=== PATIENT | female | born 1955 ===

== ENCOUNTER 2017-08-19 22:57 | Inpatient (IN) | payer OTHER ==
[~2017-08-19] VITALS: Ht 152.4 cm; Wt 67.2 kg
--- NOTE | ~2017-08-19 | DS ---
[place], [place] DISCHARGE SUMMARY [id number] #: [id number] ROOM: 315 DOCTOR: LEIF MAYERS MD BIRTHDATE: [birth year] DOS: 08/23/2017 CHIEF COMPLAINT: "I don't belong here, I am in so much pain, I didn't expect this." HISTORY OF PRESENT ILLNESS: This is a 62-year-old white female who was sent here to the U at [facility] from the Emergency Room at [facility]. By her report and by review of the records, the patient apparently had been talking to a friend and stated to the friend that she was at wits end and wanted to end it all. The friend contacted police who picked her up and transported her to the Emergency Room at [facility] where ultimately they sent her here on an involuntary basis, believing that she was a substantial risk of harm to self. As I interviewed her, she did report that she has battled chronic pain for over 20 years, being on methadone for at least 10 of these years. She rates her pain on a scale of 1-10 as a 10 and does not ever have a period of time where she is without pain. The pain wears her down affects her sleep and appetite. She notes chronic suicidality, but denied any true plan and stated she just wants to get help. She was admitted now to the [facility] to rule out organic factors to attempt to stabilize on medication, returning home when stable. PAST MEDICAL HISTORY: Remarkable for apnea, recent head trauma, coronary artery disease, GERD, hyperlipidemia, vitamin D deficiency and sciatica. SUMMARY OF HOSPITAL COURSE: The patient was admitted to the unit where she was started on Cymbalta 30 mg at bedtime. She tolerated this well and given her past history of multiple drug use and long-term opiate use, I thought that she would be able to tolerate a rapid increase. She went from 30 mg at night to 30 mg in the morning and 60 mg at night without any incident. Over the next several days, she noted a slight improvement in her overall pain level and felt that her mood lifted as well. She slept better and was eating better. She engaged readily in individual and hinton milieu activity and made great strides in making positive plans for the future. She convincingly denied medication side effects as well as convincingly denied suicidal thoughts, homicidal thoughts and self-injurious thoughts. MENTAL STATUS AT DISCHARGE: The patient was alert and oriented to person, place and time. Mood was euthymic. Affect appropriate. There were no symptoms of nate or hypomania. There were no overt auditory or visual hallucinations. No delusions, no paranoia. Short, intermediate and long-term memories were fully intact. FINAL DIAGNOSES: Major depression, recurrent and dysthymic disorder. DISPOSITION: The patient is to return home. All of her prescriptions have been e scribed to her pharmacy. She will have followup at [facility] in [place]. [place], [place] DISCHARGE SUMMARY NAME: IRLANDA CURIEL UNIT #: [id number] ROOM: [facility] DOCTOR: LEIF MAYERS MD BIRTHDATE: [birth year] LEIF MAYERS MD CM:DISCHARG [id number] LEIF MAYERS MD 08/23/17 1014 interface
--- NOTE | ~2017-08-19 | WRIGHTHP ---
[place], [place] PATIENT HISTORY AND PHYSICAL EXAM [id number] UNIT #: [id number] ROOM: 315 DOCTOR: LEIF MAYERS MD BIRTHDATE: [birth year] DOS: 08/20/2017 CHIEF COMPLAINT: "I don't belong here. I am in so much pain, I didn't expect this. HISTORY OF PRESENT ILLNESS: This is a 62-year-old white female who was sent here to the [facility] at [facility] from the Emergency Room at [facility]. By her report and by review of records, the patient apparently had been talking to a friend and stated to the friend that she was at her wit's end and wanted to end it all. This friend contacted the police who picked the patient up and transported her to the Emergency Room at [facility] where they ultimately sent her here on an involuntary basis. Further report of the Emergency Room, the patient was found to be very labile, volatile and verbally aggressive. Per her report, she has battled chronic pain for over 20 years and had been on methadone for at least 10. She has had 2 cardiac arrests and has had a pacemaker placed because of this; however, it was removed due to a recent infection. The patient reports multiple physical issues because of her chronic pain and states that this has worn her out and she has been very depressed. She, however, denies suicidality at this point. The patient reports no previous psychiatric history; however, she presented with an order for Paxil 30 mg a day. She is admitted now to fully ascertain the potential for lethality to attempt to stabilize on medication to engage in individual and hinton milieu activity with the ultimate plan to return home when stable. PAST MEDICAL HISTORY: Significant for apnea, a recent head trauma for which she states that she had lost her memory for approximately 2 weeks, coronary artery disease, GERD, hyperlipidemia, vitamin D deficiency and sciatica. The patient denies any illicit street drugs; however, she has been opiate dependent for 20+ years. MENTAL STATUS: She is alert and oriented. Mood is very labile. She is very terse and short and jumps from topic to topic, very fixated on leaving here and very fixated on pain. She is very intrusive as well as I attempted to round on other patients after talking to her. She interrupted on multiple occasions asking for meds or some type of intervention. She ultimately did redirect. She is somewhat histrionic as well as one point after talking to her, she slumped against the wall and attempted to lay on the floor in the hallway. For the most part, memory does seem to be intact. DIAGNOSES: Major depression, recurrent, severe; dysthymic disorder; rule out Morovis II disorder. PLAN: At the present time given the severity of her mood lability and her chronic pain issues, I am going to maintain her on the involuntary basis. I have started her on Cymbalta 30 mg at bedtime and did attempt to engage her in an understanding of what the Cymbalta can do for her. Of note, she does report that she had been on Cymbalta in the past, but could not remember the total dosing. Given her history of long-term methadone and opiate abuse, I am going to go ahead and rapidly titrate her on the Cymbalta to 30 mg in the morning and [place], [place] PATIENT HISTORY AND PHYSICAL EXAM NAME: IRLANDA CURIEL UNIT #: [id number] ROOM: [facility] DOCTOR: LEIF MAYERS MD BIRTHDATE: [birth year] 60 mg at night. I will also utilize Zostrix high potency cream in an effort to help modulate her pain. We will attempt at best to engage her in individual and hinton milieu activity as we further assess her potential for lethality. Once we have a clear picture as to whether or not she truly represents a harm to self or others, we will be able to determine the appropriate course of action. LEIF MAYERS MD CM:HISPHYS:PATIENT HISTORY AND PHYSICAL EXAMINATION 2 1020 LEIF MAYERS MD 08/20/17 1019 interface
--- NOTE | ~2017-08-19 | PR ---
[place], [place] PROGRESS NOTE NAME: [id number] UNIT #: [id number] ROOM: 315 DOCTOR: Jake WOOD,DARION BIRTHDATE: [birth year] DOS: 08/22/2017 PSYCHIATRIC PROGRESS NOTE SUBJECTIVE: The patient seen and spoke with the staff. The patient is doing well, going to the group, still med seeking, but easily redirectable. The patient was in her room. She was actually sleeping. She got up when I called her name. She said that she is feeling better, but still have some periods of depression. She was asking for her pain medication again and she was hard to redirect at times. She reports good sleep and appetite. MENTAL STATUS EXAMINATION: The patient was pleasant, cooperative, described her mood as "okay." Affect is somewhat flat. Thought process goal directed. No flight of ideas or loosening of association. She denied auditory or visual hallucination. No delusion or paranoia noted. She denied suicidal ideation, intent or plan. She also denied homicidal ideation, intent or plan. Insight and judgment fair. ASSESSMENT: Major depressive disorder, recurrent, severe without psychotic features, still depressed. PLAN: 1. Continue current medication and care. 2. Continue redirection. 3. [place] milieu. 4. Final medication management and discharge plan by the regular team. DARION WOOD MD CM:KATHIA [id number] Jake WOOD 08/22/17 1602 interface
--- NOTE | ~2017-08-19 | PR ---
[place], [place] PROGRESS NOTE NAME: [facility]EL [facility] [id number] UNIT #: [id number] ROOM: 315 DOCTOR: Jake WOOD,DARION BIRTHDATE: [birth year] DOS: 08/21/2017 PSYCHIATRIC PROGRESS NOTE SUBJECTIVE: The patient seen and spoke with the staff. Per staff, the patient is still med seeking, irritable at times, slept well. No behavioral problems or issues except for keep on asking pain medication. The patient was pleasant and cooperative, but looks distraught to me. She was in her room, seems upset and angry. When I asked her what is going on, she said that she is not getting the pain medication that she was used to. I discussed with her in detail about the risk of using pain medication. She reluctantly agreed with the plan. She acknowledges that she is feeling better than before, but still feels depressed and down. She denied any other problems or concerns. MENTAL STATUS EXAMINATION: The patient was pleasant and cooperative, described her mood as "down." Affect was flat, irritable at times. Thought process goal directed. No flight of ideas, loosening of association. She denied auditory or visual hallucination. No delusion or paranoia noted. She still had fleeting suicidal ideation, but no intent or plan. Denied any homicidal ideation, intent or plan. Insight and judgment fair. ASSESSMENT: Major depressive disorder, recurrent, severe without psychotic features, still depressed with suicidality. PLAN: 1. Continue current medication and care. We need to give some time for the medication to have its optimal effect. 2. [place]wood milieu. 3. Supportive care. 4. Encourage activity and groups. DARION WOOD MD CM:KATHIA [phone] Jake WOOD 08/21/17 2241 interface
[2017-08-19] MEDS ORDERED: NEURONTIN400 MG PO (23:01)
[2017-08-19] MEDS ORDERED: ZANAFLEX4 M1 PO (23:02)
[2017-08-19] MEDS ORDERED: MORPHINE SULFAT30 M9 PO (23:06)
[2017-08-19] MEDS ORDERED: VALIUM10 MG PO (23:08)
[2017-08-19] MEDS ORDERED: SENNA8.6 MG PO (23:11)
[2017-08-19] MEDS ORDERED: PERCOCET 7.5-31 EACH PO (23:13)
[2017-08-19] MEDS ORDERED: OMEPRAZOLE40 MG PO (23:15)
[2017-08-19] MEDS ORDERED: TOPROL XL25 MG PO (23:33)
[2017-08-19] MEDS ORDERED: PAXIL30 M2 PO (23:34)
[2017-08-19] MEDS ORDERED: NATURE'S BLEND F1 MG PO (23:35)
[2017-08-19] MEDS ORDERED: VITAMIN D31000 UNI1 PO (23:37)
[2017-08-19] MEDS ORDERED: LIPITOR20 MG PO (23:38)
[2017-08-19] MEDS ORDERED: NAMZARIC 28 MG1 EACH PO (23:38)
[2017-08-19] MEDS ORDERED: MAGOX 400400 MG PO (23:39)
[2017-08-19] MEDS ORDERED: K-TAB20 MEQ PO (23:44)
[2017-08-20 00:40] VITALS: BP 119/72
--- NOTE | 2017-08-20 00:40 | NUR ---
A 62, admitted INVOLUNTARY to , under the services of LEIF Barney MD with a diagnosis of MAJOR DEPRESSION RECURRENT, SEVERE. Chief complaint is MEMORY LOSS, IRRATIONAL FEARS, CRYING SPELLS, POSITIVE WISH. Patient arrived via stretcher from [facility]. Initial assessment completed. Vital signs taken and recorded. LEIF BARNEY MD notified of admission to the unit. Orders received. See assessment for past medical history, medications and allergies. Patient oriented to unit. [facility] visitation policy reviewed. Clothing/patient valuable form completed. PATIENT REFUSES TO REMOVE GOLD TONE WRIST WATCH TO PLACE IN LOCK BOX. PATIENT EDUCATED AND INFORMED OF IMPORTANCE OF VALUABLES BEING PLACED IN LOCK BOX, PATIENT VERBALIZED UNDERSTANDING BUT CONTINUES TO REFUSE AT THIS TIME. JEAN PIERRE MARIE
[2017-08-20 00:50] VITALS: BP 119/72
--- NOTE | 2017-08-20 00:59 | NUR ---
DR. MONROY MADE AWARE OF CONSULT FOR MEDICAL MANAGMENT. MED REC IN AND COMPLETE, MED HISTORY
--- NOTE | 2017-08-20 01:15 | NUR ---
DR. WILDE ON UNIT TO SEE PATIENT AT THIS TIME, UPDATE PROVIDED.
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
[2017-08-20 07:31] LABS: BASO % 0.4 % (0.0-1.0); EOS # 0.1 10*3/uL (0.0-0.4); EOS % 1.6 % (1.0-4.0); HEMOGLOBIN 12.3 g/dl (12.0-16.0); LYMPH # 1.6 10*3/uL (1.3-4.4); LYMPH % 32.1 % (27.0-41.0); MEAN CELL VOLUME 101.3 fl (81.0-99.0); MEAN CORPUSCULAR HGB 31.9 pg (27.0-31.0); MEAN CORPUSCULAR HGB CONC 31.5 g/dl (33.0-37.0); MEAN PLATELET VOLUME 10.3 fl (9.6-12.3); MONO # 0.4 10*3/uL (0.1-1.0); MONO % 8.3 % (3.0-9.0); NEUT # 2.9 10*3/uL (2.3-7.9); NEUT % 57.4 % (47.0-73.0); PLATELET COUNT AUTOMATED 246 10*3/uL (130-400); RED BLOOD COUNT 3.85 10*6/uL (4.10-5.10); RED CELL DISTRI WIDTH 12.5 % (0-14.5)
[2017-08-20 07:48] LABS: ALBUMIN 3.6 gm/dl (3.1-4.5); BUN 9 mg/dl (7-24); CHLORIDE 104 mmol/L (98-107); CHOLESTEROL 139 mg/dL (<200); POTASSIUM 3.3 mmol/L (3.5-5.1); SGOT/AST 12 IU/L (3-35); SGPT/ALT 9 U/L (12-78); SODIUM 144 mmol/L (136-145)
--- NOTE | 2017-08-20 07:58 | NUR ---
VO RECEIVED FROM FOR EXCEDRIN 2 TABS X1 NOW.
[2017-08-20 08:00] LABS: ALKALINE PHOSPHATASE 196 U/L (45-117); HDL CHOLESTEROL 54 mg/dl (40-60); LDL CHOLESTEROL 67 mg/dL (9-159); THYROID STIM HORMONE (HS) 0.603 uIU/ml (0.358-4.75); TOTAL PROTEIN 8.2 gm/dL (6.4-8.2); TRIGLYCERIDES 88 mg/dl (<150); VLDL CHOLESTEROL 18 mg/dL (6-40)
--- NOTE | 2017-08-20 08:25 | NUR ---
TREATMENT TEAM WAS HELD WITH THE FOLLOWING PRESENT: DR. MAYERS, RESIDENT, RNs, ATs, SW. DR. MAYERS DOES NOT WANT PT SIGINING IN UNTIL SHE HAS BEEN OBSERVED OVER THE WEEKEND. PENIDING DISCHARGE FOR NEXT WEEK.
[2017-08-20 09:34] LABS: VITAMIN D, 25-HYDROXY 41.7 ng/mL (30-100)
[2017-08-20] MEDS ORDERED: LASIX40 MG PO (09:48)
[2017-08-20 09:49] VITALS: BP 138/83
--- NOTE | 2017-08-20 09:50 | NUR ---
NOTIFIED THAT MEDICAL MEDICATIONS HAVE NOT BEEN ORDERED AT THIS TIME. STATES WILL ORDER THEM.
--- NOTE | 2017-08-20 13:40 | NUR ---
Exercise/Game Patient did attend group but needed quite a bit of encouragement to do so. Patitent did not participate during group,keeping her head on the table and refusing any encouragement made to her to participate
--- NOTE | 2017-08-20 14:53 | NUR ---
PATIENT IS ALERT AND ORIENTED. DENIES ANY SI, STATES "I SHOULD HAVE NEVER EVEN SAID THAT, I KNOW." VERBALLY CONTRACTED FOR SAFETY, PT VERBALIZES UNDERSTANDING WITH GOOD EFFECT. PATIENT STATES "MY FRIEND IN [place] DID THIS, SHE SHOULDN'T HAVE AND IT'S ALL HER FAULT." THIS FRIEND "NO" CALLED UNIT THIS AFTERNOON, PATIENT DECLINED PHONE CALL BUT GAVE THIS RN PERMISSION TO SPEAK WITH HER AND UPDATE HER ON PT STATUS. UPDATE GIVEN AND ALL QUESTIONS ANWSERED. MEDICATION EDUCATION COMPLETED ON NEW ORDERS AND DOSE INCREASED. PATIENT VERBALIZED UNDERSTANDING. MEDICATION COMPLIANT WITH GOOD EFFECT. PATIENT STATES SHE IS "ALWAYS IN PAIN." VERBALIZED THE ZOSTRIX CREAM IS HELPING WITH HER PAIN. NO HALLUCINATIONS, DELUSIONS NOTED. HAS NOT VOICED ANY IRRATIONAL FEARS. REQUIRES ENCOURAGEMENT TO ATTEND GROUP THERAPY THROUGHOUT THE DAY, WILL CONTINUE TO ENCOURAGE PT TO ATTEND AND PARTICIAPTE IN GROUP THERAPY. WILL CONTINUE TO PROVIDE EMOTIONAL SUPPORT NEEDED RELATED TO IRRATIONAL FEARS AND SUICIDAL THOUGHTS/ PASSIVE WISHES (HAS NOT VOICED ANY THIS SHIFT). WILL CONTINUE WITH Q15 MIN OBSERVATION CHECKS PER ORDERS. APPETITE FAIR THIS SHIFT, TAKING FLUIDS WELL. WILL CONTINUE TO ENCOURAGE PATIENT TO INCREASE PO INTAKE. STATES "I'M JUST NOT HUNGRY."
--- NOTE | 2017-08-20 15:41 | NUR ---
[place]/Reminiscing Patient did attend group approxematey !0 minutes after statring due to being in a meeting. Patient did participate without any prompting. Patient did well and indicated no inappropriate thoughts throughout group
--- NOTE | 2017-08-20 16:51 | NUR ---
SW COMPLETED PYSHOSOCIAL ASSESSMENT. PT WANTS TO RETURN HOME AND HAS HAD AN ASSEAAMENT THROUGH [id number] FOR IN HOME SERVICES.
[2017-08-20 19:48] VITALS: BP 102/62
--- NOTE | 2017-08-21 05:15 | NUR ---
24 HR chart check completed.
--- NOTE | 2017-08-21 05:55 | NUR ---
GREATLY IMPROVED MOOD LABILITY FROM PREVIOUS EVENING, MED EDUCATION PROVIDED ON TITRATION OF CYMBALTA. PT VOICING FEARS OF SURGICAL POSSIBILITIES TO CORRECT CHRONIC BACK PROBLEMS. DISCUSSED QUALITY OF LIFE STATING "I KNOW I CANT LAY HERE FOR THE NEXT 20 YEARS, I HAVE TO DO SOMETHING TO CHANGE THIS, I DO NOT WISH TO . BUT I HAVE HAD SO MANY TIMES IN MY LIFE THAT WERE CLOSE TO THAT I DO NOT FEAR IT, THERE IS A DIFFERENCE". PT PROVIDED 1-1, STATING I AM NOT USED TO SITTING AROUND SO MUCH I HAVE TO STAND OR LAY DOWN. PT APPOLOGISED FOR BEHAVIOR TOWARDS STAFF AND AMBULANCE CREW PREVIOUS NIGHT STATES I WAS JUST IN SO MUCH PAIN AND SO FRUSTRATED. PT ADMINISTERED MS CONTIN ORDERED SCHEDULED. PT CALM AND PURPOSEFULL INTERACTING WELL WITH PEERS. AWOKE ONCE IN THE MIDDLE OF THE NIGHT CONFUSED TO TIME OF DAY AND PLACE, PT REORIENTED TO PLACE AND TIME AND RETURNED TO SLEEP. SLEPT 8 HOURS
[2017-08-21 08:15] VITALS: BP 136/90
--- NOTE | 2017-08-21 11:30 | NUR ---
ON UNIT TO ASSESS PT.
--- NOTE | 2017-08-21 13:41 | NUR ---
PT ALERT TO PERSON,PLACE AND TIME. PT MED COMPLIANT WITHOUT DIFFICUTLY. PT ANXIOUS AT TIMES, PREOCCUPIED WITH PAIN MEDS, ASKING FOR SCHEDULED MEDS AND ASKING TO HAVE ADDITIONAL MEDS ORDERED. NO FACIAL GRIMCAING OR OVERT S/S OF PAIN NOTED. PT CALM,INTERACTING WITH STAFF AND PEERS. NO HALLUCIANTIONS OR DELUSIONS NOTED. PT DENIES ANY HOMICIDAL/SUICIDAL THOUGHTS. PT AMBULATORY THROUGHOUT UNIT, GAIT STEADY. PT CONTINENT OF BOWEL AND BLADDER. PLAN IS TO ENCOURAGE PT TO VOICE ANY SUICIDAL/HOMICIDAL THOUGHTS, MONITOR PT BEHAVIORS ON Q15 MIN SAFTEY CHECKS.
--- NOTE | 2017-08-21 15:03 | NUR ---
PT C/O HEADACHE 08/17, PRN PO MOTRIN GIVEN WITH CRACKERS AND PEANUTBUTTER AND JUICE. WILL CONTINUE TO MONITOR PAIN.
--- NOTE | 2017-08-21 15:49 | NUR ---
NO FURTHER C/O PAIN NOTED, WHEN ASKED IF MOTRIN HELPED PT STATED "YES IT'S BETTER." PT THEN BEGAN CONVERSING WITH STAFF ABOUT HAVING HER PACEMAKER REMOVED 7 MONTHS AGO, AND HER REACTOR SERVICE OPERATOR AND WAS SUPPOSED TO SET UP A MEETING WITH HER HEART DR AND HER LUNG DR "THAT WON'T SEE ME ANYMORE BECAUSE I STOPPED BREATHING TWICE IN THE MIDDLE OF THE NIGHT" AND HER PRIMARY CARE DR SO "WE CAN ALL GET ON THE SAME PAGE, B/C I HAVE ALOT OF OTHER MEDICAL PROBLEMS." PT THEN STATED "AND IF SOMETHING HAPPENS TO MY BROTHER OR SISTER, THEN MY SON WON'T KNOW BECAUSE I'M HERE" ASKED PT IF SHE WOULD LIKE TO CALL HER SON AND SHE STATED "THAT WAS MY GOAL FOR THE DAY BUT HE WON'T GET OFF FROM WORK UNITL 4" ADVISED PT THAT WHENEVER SHE WOULD LIKE TO CALL HER SON PLEASE JUST COME TO THE DESK AND WE WILL ATTEMPT TO GET HIM ON THE PHONE FOR HER, PT WALKED AWAY FROM THIS NURSE WITHOUT SAYING ANYTHING ELSE. PT SITTING IN DINING ROOM, CONVERSING WITH PEERS.
[2017-08-21 19:50] VITALS: BP 118/60
--- NOTE | 2017-08-21 21:30 | NUR ---
PT INTERACTIVE WITH PEERS AND STAFF. MEDICATION COMPLIANT. DENIES HI/SI. GAIT STEADY. Q15 MINUTE SAFETY CHECKS MAINTAINED. PT SEEKING MEDICATION FOR IN THE MORNING. PT ASKED "IF I WAKE UP WITH MY HEAD PUNDING, CAN I HAVE THE MOTRIN THE DR ORDERED?" EDUCATED THE PT ON THE MEDICATION AND DIRECTIONS. PLAN. ENCOURAGE PT TO VOICE CONCERNS OR ANY SI/HI, DELUSIONS, OR HALLUCINATIONS TO STAFF. ENCOURAGE GROUP PARTICIPATION. MAINTAIN SAFETY CHECKS. PROVIDE POSITIVE REASSURANCE.
--- NOTE | 2017-08-22 02:44 | NUR ---
PT CAME TO NURSES STATION TO REQUEST MOTRIN. PT STATED SHE HAD A HEADACHE /. PRN MOTRIN GIVEN PER ORDER. WILL MONITOR PT FOR EFFECTIVENESS OF MEDICATION.
--- NOTE | 2017-08-22 03:44 | NUR ---
PRN MOTRIN EFFECTIVE AT THIS TIME. PT RESTING IN BED QUIETLY. WILL CONTINUE TO MONITOR PT FOR EFFECTIVENESS OF MEDICATION.
--- NOTE | 2017-08-22 04:44 | NUR ---
24 HR chart check completed.
--- NOTE | 2017-08-22 06:15 | NUR ---
PT SLEPT GREATER THAN 7 HOURS. NO S/S OF DISTRESS NOTED. NO C/O PAIN.
[2017-08-22 07:56] VITALS: BP 135/70
--- NOTE | 2017-08-22 12:40 | NUR ---
PRN MOTRIN EFFECTIVE, PT HAS HAD NO FURTHER COMPLAINTS OF PAIN OR DISCOMFORT.
--- NOTE | 2017-08-22 15:40 | NUR ---
PT IS ALERT AND ORIENTED X4. MOOD IS STABLE AND EUTHYMIC WITH APPROPRIATE AFFECT. CONVINCINGLY DENIES ANY SUCIDIAL IDEATIONS. DENIES ANY SENSORY DISTURBANCES AND NONE ARE NOTED. POSITIVE PEER INTERACTIONS IN THE DAY ROOM OBSERVED THROUGH OUT THE SHIFT. APPETITE IS GOOD WITH ADEQUATE FLUID INTAKE. CALM AND COOPERATIVE WITH STAFF. LESS ISOLATIVE TO ROOM. HAS BEEN OUT IN [place]. MEDICATION COMPLIANT WITHOUT DIFFICULTY. WILL CONTINUE TO ENCOURAGE PT TO ATTEND AND PARTICIPATE IN GROUP THERAPY. MAINTIAN Q15 MIN OBSERVATION CHECKS PER ORDERS.
--- NOTE | 2017-08-22 18:35 | NUR ---
PRN MOTRIN GIVEN AT THIS TIME FOR 7-06/17 HEADACHE. WILL MONITOR FOR EFFECTIVENESS.
--- NOTE | 2017-08-22 18:37 | NUR ---
TREATMENT GOAL COMPLETED TODAY: PATIENT COMPLETED PERSONAL CRISIS PERVENTION PLAN.
--- NOTE | 2017-08-22 18:37 | NUR ---
PRN MOTRIN EFFECTIVE. PATIENT HAS HAD NO FURTHER COMPLAINTS OF PAIN OR DISCOMFORT.
[2017-08-22 20:16] VITALS: BP 127/66
--- NOTE | 2017-08-23 04:07 | NUR ---
24 HR chart check completed.
--- NOTE | 2017-08-23 05:28 | NUR ---
Pt denies SI at this time, verbally agreed to contract for safety, positive coping skills and alternative pain relief measures such as distraction reinforced with pt. med education provided and reinforced for armin. pt continues to be fixated on pain medication. pt informed that the only perscriptions provided by [facility] will be new psychiatric medications and that home meds will need to be re ordered by family dr. or pain clinic. pt verbalized understanding. consumed hs snack and attended hs group, medication compliant with out difficulty. pt awake requesting motrin. pt educated that order was written TID with meals and that motrin must be administered closer to breakfast for GI reasons. pt slept 8 hours with out inturruption
--- NOTE | 2017-08-23 05:58 | NUR ---
Pt at nurses station yelling at staff that she was supposed to be ordered over the counter medication. Pt educated that she needed to eat with ordered motrin. pt provided with peanut butter, crackers and milk. pt then began yelling saying i cannot eat this i will throw up where is the sherbert i had saved from supper. staff began checking freezer for sherbert and pt stormed out of room stating "If I cant get what I want I will just go be in pain in my room". pt verbally agressing with staff saying "See this is what you caused at home i can take what i want when i want not have to wait so many hours in between things, pain isnt dictated by a clock!". pt offered food to take perscribed motirin with and refused, pt offered shower and repositioning and refused. pt offered perscribed zanaflex and refused. pt in dining room at this time claudine provided. prn MOtrin to be administered.
[2017-08-23 08:00] VITALS: BP 140/68
--- NOTE | 2017-08-23 08:20 | NUR ---
TREATMENT TEAM WAS HELD WITH THE FOLLOWING: DR. MAYERS, STEAM SHOVELMAN, RN, ATs, SWs. pT IS READY FOR DISCHARGE. PT HAS APPT AT PAIN CLNIC ON 08/27. DR. MAYERS SUGGESTED F/U WITH [facility] COUNSELING.
--- NOTE | 2017-08-23 08:51 | NUR ---
ADVISED , OF PT D/C FOR AROUND 11 AM TODAY. ALSO ADVISED THAT PT IS CURRENTLY OUT OF PAIN MEDICATION AND AHS AN APPT WITH HER PAIN CLINIC ON 08/27 AND WAS WONDERING IF IT WOULD BE POSSIBLE FOR HER TO GET A [address]Cookie HE WILL SPEAK WITH REGARDING THIS MATTER. NO FUTHER ORDER AT THIS TIME.
[2017-08-23] MEDS ORDERED: DULOXETINE HCL30 MG PO (09:31)
[2017-08-23] MEDS ORDERED: Zostrix 0.1% T (09:31)
[2017-08-23] MEDS ORDERED: DULOXETINE HCL60 MG PO (09:31)
--- NOTE | 2017-08-23 10:14 | NUR ---
ON UNIT TO ASSESS PT.
--- NOTE | 2017-08-23 11:01 | NUR ---
NOTIFIFED THAT THIS NURSE SPOKE WITH NURSE AT [facility] IN [place], [place] PER 'S REQUEST. ADVISED DR THAT PER NURSE AT PAIN CLINIC IT IS OK FOR HIM TO WRITE A SCRIPT FOR PAIN MEDICATION TO LAST PT UNITL HER APPT ON 08/27.
[2017-08-23] MEDS ORDERED: MORPHINE SULFAT30 M9 PO (11:38)
--- NOTE | 2017-08-23 12:30 | NUR ---
JOSE SCHEDULED FOLOW UP APPOINTMENTS WITH PAIN CLINIC ON 08/27 AT 1O AM, DR. BATEMAN 08/31 ZT 11:30AM, AND [facility] - FIRST AVAILBLE APPOT. ON 09/14 AT 12:15PM.
--- NOTE | 2017-08-23 12:45 | NUR ---
JOSE SCHEDULED TRANSPORATION WITH [facility]. DISPATCHER WILL SEND SOMEONE SOON SHE CAN. JOSE ASKED THEM TO CALL WHEN DIRECTOR WEIGHTS AND MEASURES WAS HERE. JOSE NOTIFIED NURSE.
--- NOTE | 2017-08-23 12:55 | NUR ---
Music Therapy/Reminisce/Trivia Patient did attend group approxamatly 15 minutes in to group. Patient also participated. Patient was appropriate during group and voicing no inappropriate comments about killing herself and patient maintained safe behaviors during group
--- NOTE | 2017-08-23 13:34 | NUR ---
PT ALERT TO PERSON,PLACE,TIME AND SITUATION. PT MED COMPLIANT WITHOUT DIFFICULTY. PT MED SEEKING, ASKING MULTIPLE TIMES FOR PRN PAIN MEDICATIONS THAT HAVE ALREADY BEEN GIVEN. PT HAD HOME MEDICATIONS IN THE PHARMACY THIS NURSE ASKED PT IF WOULD LIKE TO HAVE THE MEDICATIONS THAT HAVE BEEN DISCONTINUED DESTROYED PER PT SHE DID NOT. PT APPROACHED THIS NURSE ASKING FOR VALIUM, NURSE ADVISED PT THAT UPON ADMISSION HAS DISCONTINUED THIS MEDICAITON. PT STATES "WELL I HAVE SOME IN MY BAG, CAN YOU GIVE ME ON OF THOSE." ADVISED PT THAT WE CANNOT, THE MEDICATION HAS BEEN DISCONTINUED. PT STATED "BUT I STILL HAVE THEM AND I WANT THEM." ADVISED PT THAT WHILE SHE IS HERE, WE WILL NOT BE GIVING HER THESE MEDICATIONS. PT RETURNS TO ROOM ASKING GARRET TO TAKE HER VITALS, GARRET OBTAINED VITALS, VITALS ARE WNL. PT STATED TO GARRET "THEY JUST KEEP MAKING ME WAIT FOR EVERYTHING, THEY WON'T GIVE ME ANYTHING." NURSE ADVISED PT THAT SHE HAS ALREADY HAD HER PAIN MEDICATIONS AND IS NOT DUE FOR ANYMORE UNTIL THIS AFTERNOON AROUND 230PM. PT DENIES ANY HOMICIDAL/SUICIDAL THOUGHTS. NO HALLUCIANTIONS OR DELUSIONS NOTED. PT AMBULATORY THROUGHOUT UNIT, GAIT STEADY. PT CONTINENT OF BOWEL AND BLADDER. PT TREATMENT PLAN COMPLETED, PROBLEM #1-SUICIDAL IDEATIONS RESOLVED.
--- NOTE | 2017-08-23 14:09 | NUR ---
CLINICALS GIVEN TO KELLY AT [facility]. 5 DAYS ALISHA WITH LACD 08/24/17. NEXT REVIEW DUE 08/24/17.
--- NOTE | 2017-08-23 14:32 | NUR ---
PT DISCHARGED TO VIA [facility]. DISCHARGE PAPERWORK REVIEWED AND SIGNED WITH PT. PT GIVEN HOME MEDICATIONS FROM PHARMACY, DISCONITNUED MEDS WERE NOT DESTRYOED PER PT REQUEST.
--- NOTE | 2017-08-23 15:12 | NUR ---
SW COPIED DISCHARGE INFORMATION AFTER NURSE HAD PT SIGN FORMS. COPIES TO BE GIVEN TO PT AT DISCHARGE.
--- NOTE | 2017-08-23 15:13 | NUR ---
PT WAS DISCHARGED HOME WITH FOLLOWUP WITH DR. BATEMAN 08/31 AT 11:30AM, PAIN CLINIC 08/27 AT 19AM, AND [facility] 09/14 AT 12:15PM. PT WAS GLAD TO BE LEAVING.
--- NOTE | 2017-08-23 15:15 | NUR ---
SW LOOKED ON CHART FOR PRE-CERT FROM [facility] AND DID NOT FIND ONE. SW LEFT VM FOR RUBIO GRIGGS THAT NO PRECERT WAS ON CHART.
--- NOTE | 2017-08-23 16:25 | NUR ---
GANG MINER NOTE: Faxed discharge information to Alberto Olson, Dr. Zepeda, and [facility]. SW gave me fax numbers. all sent today.
== END 2017-08-23 14:37 | disposition home or self-care (01) | DRG 885 ==
LOC: 3N 22:57
PROVIDERS: ADMIT Psychiatry & Neurology Psychiatry
DX: F33.2 Major depressive disorder, recurrent severe without psychotic features (principal); R00.1 Bradycardia, unspecified; F34.1 Dysthymic disorder; M19.90 Unspecified osteoarthritis, unspecified site; E78.5 Hyperlipidemia, unspecified; I25.10 Atherosclerotic heart disease of native coronary artery without angina pectoris; E55.9 Vitamin D deficiency, unspecified; K21.9 Gastro-esophageal reflux disease without esophagitis; M54.30 Sciatica, unspecified side; F17.200 Nicotine dependence, unspecified, uncomplicated; Z71.6 Tobacco abuse counseling; Z91.81 History of falling; Z90.710 Acquired absence of both cervix and uterus; Z82.49 Family history of ischemic heart disease and other diseases of the circulatory system; Z88.8 Allergy status to other drugs, medicaments and biological substances; Z79.1 Long term (current) use of non-steroidal anti-inflammatories (NSAID); Z79.899 Other long term (current) drug therapy; Z79.891 Long term (current) use of opiate analgesic